=== PATIENT | female | born 1980 | race Caucasian/White ===

== ENCOUNTER 2017-11-27 10:04 | Outpatient (CLI) | payer OTHER ==
[2013-11-16 23:39] VITALS: BP 154/68
[2017-11-27 10:55] LABS: eGFR (African) > 60; eGFR (Non-African) > 60
== END 2017-11-27 10:05 ==
LOC: LAB 10:04
PROVIDERS: ATTEND Family Medicine
DX: E11.65 Type 2 diabetes mellitus with hyperglycemia (principal); Z79.4 Long term (current) use of insulin; E03.9 Hypothyroidism, unspecified
CPT/HCPCS: 36415; 80053; 80061; 82043; 83036; 84443

== ENCOUNTER 2018-06-11 15:25 | Emergency (ER) | payer OTHER ==
[2018-06-11 16:02] VITALS: BP 128/84
--- NOTE | 2018-06-11 16:11 | ED Physician Documentation ---
General Adult - HISTORIAN Historian: patient - HPI Stated Complaint: Dizziness, L facial swelling Chief Complaint: General Adult Additional Information: pt c/o dizziness plus facial swelling from dental abscess plus dprp=[id number]--yum of insulin and meds for 2 months also takes synthroid. 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 denies: shortness of breath, cough GI/: denies: abdominal pain, problems urinating, vomiting, nausea NEURO/PSYCH: dizziness. 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) Other History: other (hypothryoid also peripheral neuropathy) Surgeries/Procedures: (x3) Allergies/Adverse Reactions: Allergies Allergy/AdvReac Type Severity Reaction Status Date / Time Penicillins Allergy Verified 06/11/18 15:53 - SOCIAL HX Smoking History: non-smoker Alcohol Use: none Drug Use: none - FAMILY HX Family History: No - VITAL SIGNS Vital Signs: Vital Signs Temp Pulse Resp BP Pulse Ox 98.7 F 116 H 20 128/84 98 06/11/18 15:54 06/11/18 15:54 06/11/18 15:54 06/11/18 15:54 06/11/18 15:54 - REVIEWED ASSESSMENTS Nursing Assessment Reviewed: Yes Vitals Reviewed: Yes General Adult Physical Exam - PHYSICAL EXAM GENERAL APPEARANCE: mild distress EENT: eye inspection normal NECK: normal inspection, supple RESPIRATORY: no resp distress, chest non-tender, breath sounds normal CVS: reg rate & rhythm, heart sounds normal ABDOMEN: soft, non-tender SKIN: warm/dry, normal color. No: cyanosis, diaphoresis, jaundice EXTREMITIES: normal range of motion, no evidence of injury, no edema NEURO: oriented X3, motor nml, sensation nml, mood/affect nml Discharge Clincal Impression: uncontrolled diabetes -IDDM, dental abscess Referrals: Primary Doctor,No [Primary Care Provider] - 2 Days Comments: home w/ keflex and insulin as directed by DR CHERY-pt will go by his office for some insulin Condition: Fair Disposition: 01 HOME, SELF-CARE Decision to Admit: NO Decision Time: 16:59
[2018-06-11] MEDS ORDERED: INSULIN REGULAR, HUMAN 100 UNIT/ML 3ML VIAL SQ ONE (16:40)
[2018-06-11] MEDS ORDERED: CEPHALEXIN 250 MG CAPSULE PO ONE (16:40)
[2018-06-11] MEDS ORDERED: INSULIN REGULAR, HUMAN 100 UNIT/ML 3ML VIAL ONE (16:50)
[2018-06-11] MEDS ORDERED: CEPHALEXIN 250 MG CAPSULE ONE (16:51)
== END 2018-06-11 17:24 | disposition home or self-care (01) ==
LOC: ED 15:25
DX: E11.65 Type 2 diabetes mellitus with hyperglycemia (principal); K04.7 Periapical abscess without sinus
CPT/HCPCS: 96372; 99283